=== PATIENT | female | born 1940 | race Caucasian/White ===

== ENCOUNTER 2021-06-10 12:36 | Day surgery (SDC) | payer MEDICARE ==
[~2021-06-10 12:36] MED LIST: ALBUTEROL NEB (CONC) 2.5 MG/0.5 ML INHALATION ONE; ATROPINE SULFATE 0.4 MG/ML 1 ML VIAL IM ONE; LACTATED RINGERS 1,000 ML IV SCH; LIDOCAINE 2% (PF) 20 MG/ML 5 ML VIAL INHALATION ONE; LIDOCAINE VISCOUS 300 MG/15 ML CUP MUCOUS MEM ONE
[2021-06-10 13:11] LABS: Glucose,Whole Blood 232 mg/dL (75-99)
[2021-06-10] MEDS ORDERED: LIDOCAINE 1% INJ 10MG/ML (20 ML MDV) ONE (13:13)
[2021-06-10] MEDS ORDERED: PROPOFOL 10 MG/ML 20 ML VIAL IV ONE (13:13)
[2021-06-10] MEDS ORDERED: MIDAZOLAM 2 MG/2 ML VIAL ONE (13:13)
[2021-06-10] MEDS ORDERED: KETAMINE 10 MG/ML 20 ML VIAL ONE (13:13)
[2021-06-10] MEDS ORDERED: LIDOCAINE 1% INJ 10MG/ML (20 ML MDV) INTRATRACH ONE ×2 (13:30→13:42)
[2021-06-10] MEDS ORDERED: ALBUTEROL NEBULIZED 2.5 MG/3 ML INHALATION ONE (13:51)
[2021-06-10 14:00] VITALS: TEMP 97
[2021-06-10 14:41] VITALS: PULSE 89; RESP 16
[2021-06-10 14:43] VITALS: BP 142/81
--- NOTE | 2021-06-10 20:02 | PCN ---
PROCEDURE NOTE PROCEDURES: Bronchoscopy, airway examination, therapeutic lavage, BAL. PREOP DIAGNOSES: Chronic obstructive pulmonary disease, left lower lobe infiltrate/mass. POSTOP DIAGNOSES: Chronic obstructive pulmonary disease, left lower lobe infiltrate/mass. The procedure was done in room #1 endoscopy [facility]. There was informed consent and universal timeout. [employer] provided general anesthesia. VENETIAN BL[employer] TAPE CUTTER: Dr. Solomon and Dr. Mcgrath. DESCRIPTION OF PROCEDURE: The patient was being monitored in the standard way, after she was sedated, the bronchoscope was inserted through the right nostril and it passed into the right nasopharynx. From the nasopharynx into the oropharynx and finally into the hypopharynx. The hypopharyngeal structures, including anterior commissure, true cords, false cords, arytenoids, piriform sinuses, right and left valleculae and epiglottis appeared relatively normal. The glottic opening was topicalized. Unfortunately, at this point, the patient started to desaturate. Barely got into the windpipe/trachea, at which point, the patient's saturations dropped down into the 60s. At this point, because she was not recovering, the bronchoscope was withdrawn. The patient was bagged with the bag-valve mask device. An oropharyngeal airway is placed. The patient tolerated the procedure and her saturations eventually did come up after the sedation and anesthesia wore off. The patient will be taken the phase 1 recovery to be fully recovered. I did talk to the patient's daughter, Svetlana, and told her the next time the procedure is done, it will be done in the operating room under general anesthesia. No additional recommendations are made. No samples were taken. MMODL / IJN: [id number] /
== END 2021-06-10 15:46 | disposition home or self-care (01) ==
LOC: ORWHC2ENDO 12:36
PROVIDERS: ATTEND Internal Medicine Critical Care Medicine
DX: J44.9 Chronic obstructive pulmonary disease, unspecified (principal); R91.8 Other nonspecific abnormal finding of lung field; E11.9 Type 2 diabetes mellitus without complications; I10 Essential (primary) hypertension; F17.290 Nicotine dependence, other tobacco product, uncomplicated; Z79.899 Other long term (current) drug therapy; Z79.51 Long term (current) use of inhaled steroids; Z79.4 Long term (current) use of insulin; Z79.52 Long term (current) use of systemic steroids; Z98.890 Other specified postprocedural states; Z90.710 Acquired absence of both cervix and uterus; Z83.3 Family history of diabetes mellitus; Z82.49 Family history of ischemic heart disease and other diseases of the circulatory system
CPT/HCPCS: 31622; J2250; J2001; J2704; 31624

== ENCOUNTER → 2021-06-17 | Outpatient (CLI) | payer MEDICARE ==
--- NOTE | 2021-06-17 16:20 | CT ---
EXAMINATION TYPE: CT chest w con DATE OF EXAM: 06/17/2021 COMPARISON: Chest x-ray 06/04/2021 HISTORY: Hx Emphysema. Pt stating condition getting worse. abnormal findings on lung helms CT DLP: 238.60 mGycm Automated exposure control for dose reduction was used. TECHNIQUE: CT scan of the chest is performed with IV Contrast, patient injected with 80 mL of Isovue 300. MIP I mages are created on CT scanner and reviewed. 3D reconstructed images are created on an independent w orkstation and reviewed. FINDINGS: Diffuse emphysematous changes. Apical pleural thickening noted. 3 mm nodular density left apex likely related to scar. However, there is a lobulated mass in the posterior segment right lower lobe measur ing 2.9 cm highly suggestive of malignancy. On image 18 there is a 2 mm subpleural nodule in the left upper lobe too small to characterize. No pleural effusion or pneumothorax. No focal pneumonia. Atherosclerotic change aorta. No pathologic adenopathy in the hilum or mediastinum. Coronary artery c alcification noted. Somewhat nodular breast tissue along the lateral margin of the left breast could be correlated with mammogram. Hypertrophic and degenerative changes of the spine. 2.5 cm ectasia of the upper abdominal aorta with eccentric thrombus. IMPRESSION: 1. There is a 2.9 x 2.6 x 2.7 cm mass superior segment right lower lobe suggestive of malignancy. No pathologic adenopathy. 2. Diffuse emphysematous changes 3 coronary artery calcification 3. There is is nodular density within the lateral margin of the left breast recommend follow-up mammo gram.
== END | disposition home or self-care (01) ==
LOC: RADCTMAIN 14:17
PROVIDERS: ATTEND Internal Medicine Critical Care Medicine
DX: J43.8 Other emphysema (principal); R91.8 Other nonspecific abnormal finding of lung field; N64.89 Other specified disorders of breast; I25.10 Atherosclerotic heart disease of native coronary artery without angina pectoris
CPT/HCPCS: 82565; 84520; 71260; 36415; Q9967

== ENCOUNTER 2021-11-04 16:56 | Emergency (ER) | payer MEDICARE ==
[2021-11-04] MEDS ORDERED: ONDANSETRON 4 MG/2 ML VIAL IVP STA (21:34)
[2021-11-04] MEDS ORDERED: PIPERACILLIN-TAZOBACTAM 3.375 GM in SODIUM CHLORIDE 0.9% 100 ML IVPB STA (21:34)
[2021-11-04] MEDS ORDERED: HYDROmorphone 0.5 MG/0.5 ML SYRINGE IVP STA (21:34)
[2021-11-04] MEDS ORDERED: SODIUM CHLORIDE 0.9% 1,000 ML IV STA (21:34)
[2021-11-04 21:54] LABS: Basophils # (A) 0.1 k/uL (0-0.2); Basophils % (A) 1 %; Eosinophils # (A) 0.5 k/uL (0-0.7); Eosinophils % (A) 5 %; HCT 42.8 % (34.0-46.0); Lymphocytes # (A) 1.2 k/uL (1.0-4.8); Lymphocytes % (A) 12 %; MCH 29.2 pg (25.0-35.0); MCHC 32.7 g/dL (31.0-37.0); MCV 89.3 fL (80.0-100.0); Mean Platelet Volume 9.6; Monocytes # (A) 0.6 k/uL (0-1.0); Monocytes % (A) 6 %; Neutrophils # (A) 7.7 k/uL (1.3-7.7); Neutrophils % (A) 75 %; Platelet Count 227 k/uL (150-450); RBC 4.79 m/uL (3.80-5.40); RDW 14.3 % (11.5-15.5); WBC 10.3 k/uL (3.8-10.6)
[2021-11-04 22:03] LABS: Albumin 4.1 g/dL (3.5-5.0); Calcium 9.3 mg/dL (8.4-10.2); Potassium 4.1 mmol/L (3.5-5.1); Total Bilirubin 0.3 mg/dL (0.2-1.3); Total Protein 7.2 g/dL (6.3-8.2)
--- NOTE | 2021-11-04 23:52 | ED ---
Abdominal Pain HPI - General Chief Complaint: Abdominal Pain Stated Complaint: Gall bladder issues Time Seen by Provider: 11/04/21 21:08 Source: patient Mode of arrival: ambulatory Limitations: no limitations - History of Present Illness Initial Comments: Patient is a 80-year-old female who presents to the emergency department with right upper abdominal pain. Patient states this is been occurring for 6 weeks with worsening in the past 10 days. Patient also reports nausea with no vomiting. Denies fever and chills. Reports normal bowel movements. Patient had an outpatient ultrasound today and got a call from Dr. Fernandez that there is an issue with her gallbladder so she needed to come to the emergency department. MD Complaint: abdominal pain - Related Data Home Medications Medication Instructions Recorded Confirmed Albuterol Nebulized [Ventolin 2.5 mg INHALATION DAILY PRN 06/08/21 06/26/21 Nebulized] Albuterol Sulfate [Albuterol 1 puff PO Q4-6H PRN 06/08/21 06/26/21 Sulfate Hfa] Cholecalciferol [Vitamin D3 (125 125 mcg PO DAILY 06/08/21 06/26/21 Mcg = 5000 Iu)] Donepezil HCl [Aricept ODT] 5 mg PO HS 06/08/21 06/26/21 Insulin Glargine,Hum.rec.anlog 20 unit SQ HS 06/08/21 06/26/21 [Lantus Solostar Pen] Venlafaxine HCl [Effexor XR] 150 mg PO DAILY 06/08/21 06/26/21 busPIRone HCL [Buspar] 15 mg PO BID 06/08/21 06/26/21 guaiFENesin [Mucinex] 600 mg PO BID 06/08/21 06/26/21 traZODone HCL [Desyrel] 100 mg PO HS 06/08/21 06/26/21 Insulin Aspart (Niacinamide) 0 units SQ QID PRN 06/26/21 06/26/21 [Fiasp 100 Unit/ml Flextouch Pen] Previous Rx's Medication Instructions Recorded Ipratropium Nebulized [Atrovent 0.5 mg INHALATION Q8HR 30 Days #6 06/10/21 Nebulized 0.2 MG/ML] pack Allergies Allergy/AdvReac Type Severity Reaction Status Date / Time No Known Allergies Allergy Verified 11/04/21 17:27 Review of Systems ROS Statement: Those systems with pertinent positive or pertinent negative responses have been documented in the HPI. ROS Other: All systems not noted in ROS Statement are negative. Past Medical History Past Medical History: Cancer, CVA/TIA, Diabetes Mellitus, Memory Impairment Additional Past Medical History / Comment(s): Stage 4 emphysema. arteriovenous malformation brain bleed. uterine cancer. cold sores History of Any Multi-Drug Resistant Organisms: None Reported Past Surgical History: Hysterectomy Additional Past Surgical History / Comment(s): brain surgery Past Anesthesia/Blood Transfusion Reactions: No Reported Reaction Past Psychological History: No Psychological Hx Reported Smoking Status: Vaper Past Alcohol Use History: None Reported Past Drug Use History: None Reported General Exam Limitations: no limitations General appearance: alert, in no apparent distress Head exam: Present: atraumatic, normocephalic, normal inspection Respiratory exam: Present: normal lung sounds bilaterally. Absent: respiratory distress, wheezes, rales, rhonchi, stridor Cardiovascular Exam: Present: regular rate, normal rhythm, normal heart sounds. Absent: systolic murmur, diastolic murmur, rubs, gallop, clicks GI/Abdominal exam: Present: soft, tenderness (RUQ), normal bowel sounds. Absent: distended, guarding, rebound, rigid Neurological exam: Present: alert, oriented X3, CN II-XII intact Psychiatric exam: Present: normal affect, normal mood Skin exam: Present: warm, dry, intact, normal color. Absent: rash Course Vital Signs 11/04/21 11/04/21 11/04/21 17:24 21:29 21:31 Temperature 98.3 F 98.3 F Pulse Rate 91 92 93 Respiratory 20 14 14 Rate Blood Pressure 140/75 170/89 O2 Sat by Pulse 92 L 100 Oximetry 11/05/21 00:24 Temperature 97.8 F Pulse Rate 88 Respiratory 18 Rate Blood Pressure 143/83 O2 Sat by Pulse 96 Oximetry Medical Decision Making - Medical Decision Making This is a 80-year-old female who presents with right upper quadrant pain and nausea. Thorough history and examination were performed. Patient is afebrile. Denies chills. I did review patient's abdominal ultrasound from today which show ed cholelithiasis with a thickened gallbladder wall raising suspicion for cholecystitis. There was also dilation of the common bile duct at 1 cm possibly reflecting possible obstruction or distal stone. Pain and nausea controlled. Laboratory studies were obtained which are relatively unremarkable. Results discussed with patient and her daughter. Patient likely needs ERCP. Unfortunately at this time we do not have GI services. I spoke to the patient and her daughter about transfer in detail. Patient and daughter have several arguments about transfer. Patient would like to be transferred however daughter is argumentative. Ultimately patient decides to leave AMA. Risks of leaving AMA were discussed in detail. Patient verbalizes understanding. I highly encouraged her to seek treatment as soon as possible. Dr. Steiner is my attending. - Lab Data Result diagrams: 11/04/21 21:44 11/04/21 21:44 Lab Results 11/04/21 11/04/21 Range/Units 21:44 21:44 WBC 10.3 (3.8-10.6) k/uL RBC 4.79 (3.80-5.40) m/uL Hgb 14.0 (11.4-16.0) gm/dL Hct 42.8 (34.0-46.0) % MCV 89.3 (80.0-100.0) fL MCH 29.2 (25.0-35.0) pg MCHC 32.7 (31.0-37.0) g/dL RDW 14.3 (11.5-15.5) % Plt Count 227 (150-450) k/uL MPV 9.6 Neutrophils % 75 % Lymphocytes % 12 % Monocytes % 6 % Eosinophils % 5 % Basophils % 1 % Neutrophils # 7.7 (1.3-7.7) k/uL Lymphocytes # 1.2 (1.0-4.8) k/uL Monocytes # 0.6 (0-1.0) k/uL Eosinophils # 0.5 (0-0.7) k/uL Basophils # 0.1 (0-0.2) k/uL Sodium 137 (137-145) mmol/L Potassium 4.1 (3.5-5.1) mmol/L Chloride 100 (98-107) mmol/L Carbon Dioxide 33 H (22-30) mmol/L Anion Gap 4 mmol/L BUN 22 H (7-17) mg/dL Creatinine 1.00 (0.52-1.04) mg/dL Est GFR (CKD-EPI)AfAm 63 (>60 ml/min/1.73 sqM) Est GFR (CKD-EPI)NonAf 54 (>60 ml/min/1.73 sqM) Glucose 87 (74-99) mg/dL Calcium 9.3 (8.4-10.2) mg/dL Total Bilirubin 0.3 (0.2-1.3) mg/dL AST 20 (14-36) U/L ALT 17 (4-34) U/L Alkaline Phosphatase 110 (38-126) U/L Total Protein 7.2 (6.3-8.2) g/dL Albumin 4.1 (3.5-5.0) g/dL Lipase 71 (23-300) U/L Disposition Clinical Impression: Choledocholithiasis, Cholecystitis Disposition: Left Against Medical Advice Condition: Fair Additional Instructions: You are leaving against medical advice. It is crucial you are evaluated for further evaluation and management of your gallbladder as soon as possible. Infection of the gallbladder can lead to infection of the blood and possibly de ath. Return to the emergency department if you experience new, concerning, or worsening symptoms. Is patient prescribed a controlled substance at d/c from ED?: No Referrals: Alona Fernandez MD [Primary Care Provider] - 1-2 days Time of Disposition: 00:08
[2021-11-05 00:27] VITALS: BP 143/83; PULSE 88; RESP 18; TEMP 97.8
== END 2021-11-05 00:24 | disposition left against medical advice (07) ==
LOC: EC 16:56
DX: K80.40 Calculus of bile duct with cholecystitis, unspecified, without obstruction (principal); E11.9 Type 2 diabetes mellitus without complications; J43.9 Emphysema, unspecified; F17.290 Nicotine dependence, other tobacco product, uncomplicated; Z53.29 Procedure and treatment not carried out because of patient's decision for other reasons; Z79.4 Long term (current) use of insulin; Z79.84 Long term (current) use of oral hypoglycemic drugs
CPT/HCPCS: 36415; 80053; 83690; 85025; 99284; 96365; 96375; J2543; J2405; J1170

== ENCOUNTER → 2021-11-04 | Outpatient (CLI) | payer MEDICARE ==
--- NOTE | 2021-11-04 15:18 | US ---
EXAMINATION TYPE: US abdomen complete DATE OF EXAM: 11/04/2021 COMPARISON: NONE CLINICAL HISTORY: R10.9 ABD PAIN. Generalized abd pain x 10 days EXAM MEASUREMENTS: Liver Length: 13.5 cm Gallbladder Wall: .5 cm CBD: 1.0 cm Spleen: 10.6 cm Right Kidney: 10.2 x3.1 x 3.7 cm Left Kidney: 10.6 x 4.2 x 4.5 cm Pancreas: Ductal dilatation seen sujatha. .2 cm Liver: wnl Gallbladder: calcifications seen within thickened irregular wall Evidence for sonographic Nolan's sign: Yes pt was very tender during the exam CBD: wnl Spleen: wnl Right Kidney: No hydronephrosis or masses seen Left Kidney: No hydronephrosis or masses seen Upper IVC: wnl Abd Aorta: wnl IMPRESSION: 1. Cholelithiasis with thickened gallbladder wall correlate for cholecystitis. CBD appears dilated at 1 cm correlate for CBD obstruction or distal stone. Report called to referring clinician 3:15 PM 11/04. 2. Mild prominence of the pancreatic duct. Could be secondary to the dilated CBD.
== END | disposition home or self-care (01) ==
LOC: RADUSWWP 13:21
PROVIDERS: ATTEND Internal Medicine
DX: K80.20 Calculus of gallbladder without cholecystitis without obstruction (principal)
CPT/HCPCS: 76700